=== PATIENT | female | born 1970 | race Caucasian/White ===

== ENCOUNTER 2023-10-04 01:28 | Emergency (ER) | payer BC, SELFPAY ==
[2023-10-04 01:34] VITALS: BP 138/82; PULSE 90; RESP 20; TEMP 36.7; O2SAT 99; BMI 25.1
--- NOTE | 2023-10-04 01:58 | ED.GENADULT ---
HPI - General Adult General Chief complaint: Dental/Oral/Mouth Injury/Pain Stated complaint: Tooth and sinus pain L side Time Seen by Provider: 10/04/23 01:32 Source: patient Mode of arrival: ambulatory Limitations: no limitations History of Present Illness HPI narrative: 53-year-old female presents to the emergency department with a 3 day history of left upper pre malar area tooth pain. Pain radiating into the sinus area. Took some ibuprofen about 1 hour prior to arrival with no improvement of symptoms, has not tried Tylenol. No fever. Feels a little on well and mildly nauseated. Poor sleep last night. She does have a history of chronic sleep issues but typically takes trazodone which often does work for her. No trauma or injury. Does have a known history of bone loss. She initially tells me that she has not seen a dentist in many years but then tells me that they have diagnosed her with bone loss and she has had a tooth extraction. She then tells me that she has a dentist just not 1 that she particularly likes here in town. No drainage. No difficulty swallowing, no neck pain, no headache. Has not tried other [id number] treatments to help with her symptoms. Has not tried calling for a dental appointment. Past medical history notable for ADHD, depression and anxiety. Home medications are accurate as listed per her report. ROS notable for the generalized and HEENT symptoms as above only, otherwise denies times 12 systems. Related Data Home Medications Medication Instructions Recorded Confirmed dextroamphetamine-amphetamine ER 1 cap PO BID 10/04/23 10/04/23 20 mg 24hr capsule,extend release trazodone 50 mg tablet 50 mg PO HS 10/04/23 10/04/23 venlafaxine 150 mg 150 mg PO DAILY 10/04/23 10/04/23 capsule,extended release 24 hr Allergies Allergy/AdvReac Type Severity Reaction Status Date / Time No Known Drug Allergies Allergy Verified 10/04/23 01:36 [facility] Medical History Ovarian cyst ?N83.209 - Unspecified ovarian cyst, unspecified side (ICD-10) Controlled substance agreement signed ?Z79.899 - Other intermediate project manager (current) drug therapy (ICD-10) ADHD (attention deficit hyperactivity disorder) ?F90.9 - Attention-deficit hyperactivity disorder, unspecified type (ICD-10) Carpal tunnel syndrome ?G56.00 - Carpal tunnel syndrome, unspecified upper limb (ICD-10) Seborrheic dermatitis ?L21.9 - Seborrheic dermatitis, unspecified (ICD-10) TMJ (dislocation of temporomandibular joint) ?S03.00XA - Dislocation of jaw, unspecified side, initial encounter (ICD-10) Rosacea ?L71.9 - Rosacea, unspecified (ICD-10) Depression ?F32.A - Depression, unspecified (ICD-10) Allergic rhinitis ?J30.9 - Allergic rhinitis, unspecified (ICD-10) Anxiety ?F41.9 - Anxiety disorder, unspecified (ICD-10) Surgical History History of laparoscopic cholecystectomy ?Z90.49 - Acquired absence of other specified parts of digestive tract (ICD-10) History of wisdom tooth extraction ?K08.409 - Partial loss of teeth, unspecified cause, unspecified class (ICD-10) History of carpal tunnel release ?Z98.890 - Other specified postprocedural states (ICD-10) History of esophagogastroduodenoscopy (EGD) ?Z98.890 - Other specified postprocedural states (ICD-10) History of total hip arthroplasty ?Z96.649 - Presence of unspecified artificial hip joint (ICD-10) Social History Smoking Status: Current every day smoker What tobacco products do you use: cigarettes Second hand tobacco smoke exposure: Yes How often do you have a drink containing alcohol: never AUDIT-C Alcohol total score: 0 Non-prescribed substance use: denies use Exam Const: Vital Signs, click to edit/add: Vital Signs - 24 hr 10/04/23 01:34 Temperature 98.1 F Pulse Rate [Right Pulse Oximeter] 90 Respiratory Rate 20 Blood Pressure [Ri ght Upper Arm] 138/82 Pulse Oximetry 99 Oxygen Delivery Me thod Room Air Documenting provider has reviewed patient's vital signs: yes General appearance: well kempt HENMT: Common normals: normocephalic, head/scalp atraumatic and TM's normal bilaterally Head and scalp: normocephalic and atraumatic Face and sinus: normal facial exam and face symmetric Tympanic membrane: TM's normal bilaterally Throat: posterior oropharynx normal Other: No facial swelling. Mild swelling to the hard palate area along the left upper premolar teeth. No signs of drainage or broken tooth. First and 2nd premolar on the left upper side are a bit loose. No sign of obvious broken tooth or dental caries. Jaw opens and closes normally. Normal posterior pharynx and soft palate. Eye: Common normals: conjunctivae normal Conjunctiva: conjunctiva(e) normal Neck & C-Spine: Common normals: full ROM and no lymphadenopathy General: normal visual inspection Resp: Common normals: normal respiratory effort, no use of accessory muscles and clear to auscultation bilaterally Effort & inspection: able to speak in complete sentences Auscultation: clear to auscultation bilaterally Cardio: Common normals: regular rate, regular rhythm, S1 normal heart sound and S2 normal heart sound Rate: regular rate Rhythm: regular rhythm Heart sounds: S1 normal and S2 normal Psych: Common normals: speech normal Appearance: well kempt Speech: normal speech Mood and affect: euthymic mood Insight: insight good Judgement: judgment good Skin: Common normals: no rashes or lesions noted General skin exam: no rashes or lesions noted Course Course ED Course: Mild dental swelling with no signs of fever, sepsis or broken teeth. Suspect inflammation versus early infection. Counseled patient that unfortunately do not have the resources or the training in the emergency department to offer her definitive care for this. Stressed the importance of following up with her dentist. Recommended that we start amoxicillin 1000 mg b.i.d. and that she call her dentist right away in the morning. She will be given prescription for Toradol for pain control, counseled on use of Tylenol and [id number]-[id number] sleep aids to augment her trazodone to help her with sleep. Symptoms should start to improve within a couple of days and being on an antibiotic. Written instructions of alarm symptoms will be provided. Vital Signs Vital signs: Initial Vital Signs Temperature 98.1 F 10/04/23 01:34 Temperature Source Temporal Artery Scan 10/04/23 01:34 Pulse Rate 90 10/04/23 01:34 Respiratory Rate 20 10/04/23 01:34 Blood Pressure 138/82 10/04/23 01:34 Blood Pressure Mean 100 10/04/23 01:34 Blood Pressure Position Sitting 10/04/23 01:34 Pulse Oximetry 99 10/04/23 01:34 Oxygen Delivery Method Room Air 10/04/23 01:34 Vital Signs Temperature 98.1 F 10/04/23 01:34 Pulse Rate 90 10/04/23 01:34 Respiratory Rate 20 10/04/23 01:34 Blood Pressure 138/82 10/04/23 01:34 Pulse Oximetry 99 10/04/23 01:34 Oxygen Delivery Method Room Air 10/04/23 01:34 Temperature 98.1 F 10/04/23 01:34 Pulse Rate 90 10/04/23 01:34 Respiratory Rate 20 10/04/23 01:34 Blood Pressure 138/82 10/04/23 01:34 Pulse Oximetry 99 10/04/23 01:34 Oxygen Delivery Method Room Air 10/04/23 01:34 Discharge Plan Discharge Clinical Impression: Toothache Patient Disposition: Home, Self-Care Condition: Stable Instructions: Toothache (ED) Additional Instructions: As we discussed, unfortunately, I cannot give you definitive incomplete care for your tooth problem. It is important that you call your dental office right away in the morning when they open to try to get an appointment this week. I am concerned that there could be an infection. I would like to start you on amoxicillin, a common antibiotic. Most people start to notice relief from the inflammation within 48 hours of starting the antibiotic. The pain radiating up into the sinus area is common with this. I would recommend that you use your Tylenol arthritis 2 tablets 3 times daily for pain. I have also given you a prescription for Toradol, a common anti-inflammatory pain medication. You may take this up to 4 times daily. Do not use additional ibuprofen or Aleve while you are taking the Toradol. It is okay to take your trazodone with these medications. You may also take 10 mg of melatonin and or up to 50 mg of Benadryl to help augment your sleep also. Activity Level: No Restrictions Discharge Diet: Regular Prescriptions: No Action trazodone 50 mg tablet 50 mg PO HS dextroamphetamine-amphetamine 20 mg capsule,extended release 24hr 1 cap PO BID venlafaxine 150 mg capsule,extended release 24hr 150 mg PO DAILY Stand Alone [facility]: [facility] Info Instructions
[2023-10-04 02:00] VITALS: BP 138/82; PULSE 90; RESP 20; TEMP 36.7; O2SAT 99
== END 2023-10-04 02:18 | disposition home or self-care (01) ==
LOC: ED 02:18
PROVIDERS: Emergency Provider Family Medicine; PCP Physician Assistant Medical
DX: K08.89 Other specified disorders of teeth and supporting structures (principal)
CPT/HCPCS: 99283

== ENCOUNTER 2024-08-21 18:48 | Emergency (ER) | payer BC, SELFPAY ==
[2024-08-21 19:11] VITALS: BP 99/64; PULSE 87; RESP 16; TEMP 36.6; O2SAT 98; BMI 26.9
--- NOTE | 2024-08-21 19:40 | ED.ABDPAIN ---
HPI - Abdominal Pain General Time Seen by Provider: 19:40 Date Seen: 08/21/24 Chief Complaint: Abdominal Pain Stated Complaint: Upper abdominal pain Time Seen by Provider: 08/21/24 19:34 Source: patient and RN notes reviewed Mode of arrival: ambulatory Limitations: no limitations History of Present Illness HPI narrative: Patient is a 53yo female coming in with resolved episode of severe epigastric pain. Patient was scheduled to talk to family on the phone tonight and she states that it requires alcohol. Otherwise, she thinks that she last drank about over a month ago. She had 2 Guinness beers over a couple of hours, then got small glass of red wine. After she started to drink that, developed severe epigastric pain. Was associated with becoming completely sweaty, felt nausea, did try to make herself through up but nothing came up. She has been having nocturnal awakenings with burning in her lower central chest that she feels is heartburn, this has been going on about 3 months; she feels that it is associated with starting duloxetine for pain. She feels that this medication is not helping her pain at all. She has not been diagnosed with an ulcer before but when I asked her about this, she states that she told her that she thought it might be an ulcer. Pain has resolved, she almost left when nursing staff was going out to get her. No fevers chills, no symptoms prior to the abrupt onset after starting the red wine. She has had her gallbladder out. She does note that she does not sleep well at night anyways, is menopausal and wakes up every 2-3 hours sweaty and hot. She only sleeps well if she takes trazodone. elicited complaint: abdominal pain Related Data Home Medications ?Medication ?Instructions ?Recorded ?Confirmed dextroamphetamine-amphetamine ER 1 cap PO BID 10/04/23 08/21/24 20 mg 24hr capsule,extend release trazodone 50 mg tablet 50 mg PO HS 10/04/23 08/21/24 venlafaxine 150 mg 150 mg PO DAILY 10/04/23 10/04/23 capsule,extended release 24 hr duloxetine 30 mg capsule,delayed 60 mg PO 08/21/24 release Previous Rx's ?Medication ?Instructions ?Recorded omeprazole 40 mg capsule,delayed 40 mg PO DAILY #30 caps 08/21/24 release Allergies Allergy/AdvReac Type Severity Reaction Status Date / Time No Known Drug Allergies Allergy Verified 10/04/23 01:36 Review of Systems Status of ROS Reports: 6 or more systems reviewed and unremarkable except as noted in History and below [facility] Medical History Ovarian cyst ?N83.209 - Unspecified ovarian cyst, unspecified side (ICD-10) Controlled substance agreement signed ?Z79.899 - Other extermination inspector (current) drug therapy (ICD-10) ADHD (attention deficit hyperactivity disorder) ?F90.9 - Attention-deficit hyperactivity disorder, unspecified type (ICD-10) Carpal tunnel syndrome ?G56.00 - Carpal tunnel syndrome, unspecified upper limb (ICD-10) Seborrheic dermatitis ?L21.9 - Seborrheic dermatitis, unspecified (ICD-10) TMJ (dislocation of temporomandibular joint) ?S03.00XA - Dislocation of jaw, unspecified side, initial encounter (ICD-10) Rosacea ?L71.9 - Rosacea, unspecified (ICD-10) Depression ?F32.A - Depression, unspecified (ICD-10) Allergic rhinitis ?J30.9 - Allergic rhinitis, unspecified (ICD-10) Anxiety ?F41.9 - Anxiety disorder, unspecified (ICD-10) Surgical History History of laparoscopic cholecystectomy ?Z90.49 - Acquired absence of other specified parts of digestive tract (ICD-10) History of wisdom tooth extraction ?K08.409 - Partial loss of teeth, unspecified cause, unspecified class (ICD-10) History of carpal tunnel release ?Z98.890 - Other specified postprocedural states (ICD-10) History of esophagogastroduodenoscopy (EGD) ?Z98.890 - Other specified postprocedural states (ICD-10) History of total hip arthroplasty ?Z96.649 - Presence of unspecified artificial hip joint (ICD-10) Social History Smoking Status: Current every day smoker What tobacco products do you use: cigarettes Second hand tobacco smoke exposure: Yes How often do you have a drink containing alcohol: never AUDIT-C Alcohol total score: 0 Non-prescribed substance use: denies use Exam Const: Vital Signs, click to edit/add: Vital Signs - 24 hr 08/21/24 19:11 Temperature 97.8 F Pulse Rate [Pulse Oximeter] 87 Respiratory Rate 16 Blood Pressure [Ri ght Upper Arm] 99/64 Pulse Oximetry 98 Oxygen Delivery Me thod Room Air This 53-year-old female is alert, interactive, no apparent distress. Sclera clear, symmetrical facial function, very talkative in speech is normal. Lungs are clear, good air entry, no wheezing or crackles. CV regular rate and rhythm, no murmur, normal S1-S2, no S3-S4. Abdomen is soft, nontender, nondistended, no organomegaly, rebound or guarding. She specifically has no epigastric pain at this time. Documenting provider has reviewed patient's vital signs: yes Course Reevaluation(s) Time of Reevaluation #1: 21:30 Reevaluation #1: Have reviewed with patient that her white blood count is normal. She is asymptomatic at this time. We did review that her AST was 51, below 35 is normal, ALT 37 in below 35 is normal. We did discuss such entities as alcohol inducement of liver enzyme elevation, binge drinking patterns can potentially do this. We discussed fatty liver in the [place] as a cause of mild liver enzyme elevation. The garcía point is for her to have her liver enzymes rechecked just to ensure stability. If she is worsening, they can be recheck it and she does understand that she may need to return if she has further episodes. The meantime, we will cover with omeprazole, she needs follow up in clinic and I would suggest starting with an EGD given her symptoms. Vital Signs Vital signs: Initial Vital Signs Temperature 97.8 F 08/21/24 19:11 Temperature Source Temporal Artery Scan 08/21/24 19:11 Pulse Rate 87 08/21/24 19:11 Pulse Rhythm Regular 08/21/24 19:11 Respiratory Rate 16 08/21/24 19:11 Blood Pressure 99/64 08/21/24 19:11 Blood Pressure Mean 75 08/21/24 19:11 Blood Pressure Position Sitting 08/21/24 19:11 Pulse Oximetry 98 08/21/24 19:11 Oxygen Delivery Method Room Air 08/21/24 19:11 Vital Signs Temperature 97.8 F 08/21/24 19:11 Pulse Rate 87 08/21/24 19:11 Respiratory Rate 16 08/21/24 19:11 Blood Pressure 99/64 08/21/24 19:11 Pulse Oximetry 98 08/21/24 19:11 Oxygen Delivery Method Room Air 08/21/24 19:11 Temperature 97.8 F 08/21/24 19:11 Pulse Rate 87 08/21/24 19:11 Respiratory Rate 16 08/21/24 19:11 Blood Pressure 99/64 08/21/24 19:11 Pulse Oximetry 98 08/21/24 19:11 Oxygen Delivery Method Room Air 08/21/24 19:11 MDM - Abdominal Pain Lab Data Attestation: I reviewed the patient's lab results. Labs: Lab Results 08/21/24 08/21/24 Range/Units 19:58 20:06 WBC 10.97 (4.50-11.00) K/uL RBC 4.42 (4.00-5.20) m/uL Hgb 14.1 (12.0-16.0) gm/dL Hct 41.5 (33.0-51.0) % MCV 94 (80-100) fL MCH 32 (26-34) pg MCHC 34 (32-36) gm/dL RDW Coeff of Kehinde 12.8 (11.5-15.5) % Plt Count 258 (140-440) K/uL Neut % (Auto) 73.3 H (42.0-72.0) % Lymph % (Auto) 18.7 L (20-44) % Mora % (Auto) 7.0 (0.0-11.0) % Eos % (Auto) 0.7 (0.0-7.0) % Baso % (Auto) 0.1 (0.0-3.0) % Neut # (Auto) 8.00 H (1.7-7.0) K/uL Lymph # (Auto) 2.10 (0.90-2.90) K/uL Mora # (Auto) 0.80 (0.00-0.90) K/UL Eos # (Auto) 0.08 (0.00-0.50) K/uL Baso # (Auto) 0.01 (0.00-0.30) K/uL Abs Immat Gran (auto) 0.02 (0.00-0.30) K/uL Imm/Tot Granulo (auto) 0.2 % Sodium 137 (135-149) mmol/L Potassium 4.3 (3.6-5.1) mmol/L Chloride 103 (96-114) mmol/L Carbon Dioxide 27 (20-32) mmol/L Anion Gap 7 (7-15) mEq/L BUN 9 (7-30) mg/dL Creatinine 0.6 (0.5-1.5) mg/dL Estimated Creat Clear 106.66 Estimated GFR 108 ml/min Glucose 93 (60-115) mg/dL Lactate 1.4 (0.5-1.9) mmol/L Calcium 8.8 (8.4-10.6) mg/dL Total Bilirubin 0.3 (0.1-1.5) mg/dL Direct Bilirubin 0.2 (0.0-0.5) mg/dL AST 51 H (12-35) U/L ALT 37 H (4-35) U/L Alkaline Phosphatase 46 (40-150) U/L Troponin I < 0.01 L (0.01-0.04) ng/mL C-Reactive Protein < 0.5 L (0.5-1.0) mg/dL Total Protein 6.7 (6.0-8.3) g/dL Albumin 4.0 (3.3-5.0) g/dL Amylase 81 (18-89) U/L Lipase 134 (23-300) U/L Ethyl Alcohol 0.08 H (0.01-0.03) % Lab Acknowledgement Test Added ECG Data Attestation: I personally reviewed and interpreted this ECG as follows: (Normal sinus rhythm, 76 beats per minute. No ischemic change, no infarct.) ECG interpretation date: 08/21/24 ECG interpretation time: 20:45 Prior ECG tracings: not available for review Discharge Plan Discharge Clinical Impression: Acute epigastric pain Patient Disposition: Home, Self-Care Condition: Stable Instructions: GERD (Gastroesophageal Reflux Disease) (ED), Epigastric Pain (ED) Additional Instructions: Will have you try omeprazole and take this daily. You need to schedule follow-up in clinic, discuss having an EGD done. Liver enzymes were very minimally elevated, these should be rechecked within the next couple of weeks of ongoing symptoms or within the next month or 2 if you have no further issues. If you have increasing epigastric pain, develops fever or vomiting with this, have further concerns, please seek re-evaluation. Activity Level: Activity as Tolerated Prescriptions: New omeprazole 40 mg capsule,delayed release(DR/EC) 40 mg PO DAILY Qty: 30 0RF No Action trazodone 50 mg tablet 50 mg PO HS dextroamphetamine-amphetamine 20 mg capsule,extended release 24hr 1 cap PO BID venlafaxine 150 mg capsule,extended release 24hr 150 mg PO DAILY duloxetine 30 mg capsule,delayed release(DR/EC) 60 mg PO Follow Up/Referrals: Dianne Flowers PA-C [Primary Care Provider] - Stand Alone Forms: [facility] Info Instructions
[2024-08-21 20:12] LABS: Lactate* 1.4 mmol/L (0.5-1.9)
[2024-08-21 20:14] LABS: Basophils Absolute Auto 0.01 K/uL (0.00-0.30); Basophils Percent Auto 0.1 % (0.0-3.0); Eosinophils Absolute Auto 0.08 K/uL (0.00-0.50); Eosinophils Percent Auto 0.7 % (0.0-7.0); Hematocrit 41.5 % (33.0-51.0); Hemoglobin* 14.1 gm/dL (12.0-16.0); Immature Granulocytes Abs Auto 0.02 K/uL (0.00-0.30); Immature Granulocytes Pct Auto 0.2 %; Lymphocytes Percent Auto 18.7 % (20-44); Mean Corpuscular HGB Conc 34 gm/dL (32-36); Mean Corpuscular Hemoglobin 32 pg (26-34); Mean Corpuscular Volume 94 fL (80-100); Neutrophils Percent Auto 73.3 % (42.0-72.0); Platelet Count* 258 K/uL (140-440); RDW Coefficient of Variation % 12.8 % (11.5-15.5); Red Blood Count 4.42 m/uL (4.00-5.20); White Blood Count* 10.97 K/uL (4.50-11.00)
[2024-08-21 20:17] LABS: Slide Review Reflex No
[2024-08-21 20:48] LABS: Chloride* 103 mmol/L (96-114); Potassium* 4.3 mmol/L (3.6-5.1); Sodium* 137 mmol/L (135-149)
[2024-08-21 20:50] LABS: Amylase* 81 U/L (18-89); Creatinine* 0.6 mg/dL (0.5-1.5); Est. Creatinine Clearance* 106.66; Estimated Glomerular Filt Rate 108 ml/min
[2024-08-21 20:51] LABS: Alkaline Phosphatase* 46 U/L (40-150); Anion Gap 7 mEq/L (7-15); Aspartate Amino Transferase* 51 U/L (12-35); Bilirubin Direct* 0.2 mg/dL (0.0-0.5); Bilirubin Total* 0.3 mg/dL (0.1-1.5); Blood Urea Nitrogen* 9 mg/dL (7-30); Carbon Dioxide* 27 mmol/L (20-32); Glucose* 93 mg/dL (60-115); Lipase* 134 U/L (23-300); Total Protein* 6.7 g/dL (6.0-8.3)
[2024-08-21 20:52] LABS: Alanine Aminotransferase* 37 U/L (4-35); Calcium* 8.8 mg/dL (8.4-10.6)
[2024-08-21 21:03] LABS: C Reactive Protein* < 0.5 mg/dL (0.5-1.0); Troponin I* < 0.01 ng/mL (0.01-0.04)
[2024-08-21 21:22] LABS: Ethanol* 0.08 % (0.01-0.03)
[2024-08-21 21:45] VITALS: BP 118/69; PULSE 85; RESP 18; TEMP 37; O2SAT 94
== END 2024-08-21 21:46 | disposition home or self-care (01) ==
PROVIDERS: Emergency Provider Family Medicine; PCP Physician Assistant Medical
DX: R10.13 Epigastric pain (principal)
CPT/HCPCS: 36415; 80053; 82077; 82150; 82248; 83605; 83690; 84484; 85025; 86140; 93005; 99284